=== PATIENT | female | born 1955 | race Caucasian/White ===

== ENCOUNTER 2016-10-15 04:25 | Inpatient (IN) | payer OTHER ==
[~2016-10-15] VITALS: Ht 160 cm; Wt 64.8 kg
[~2016-10-15 04:25] MED LIST: LEVO112T6; NITR100C56 PO; OMEG1CAP62; VITA113.
[2016-10-15] MEDS ORDERED: SODIUM CHLORIDE FLUSH 10ML SYR IVF ONE (05:30)
[2016-10-15 06:05] LABS: HEMOGLOBIN 14.5 g/dL (11.7-16.4)
[2016-10-15 06:14] LABS: BLOOD UREA NITROGEN 11 mg/dL (7-18)
[2016-10-15 06:18] LABS: IS PT STATUS REG ER OR PRE ER? YES
[2016-10-15] MEDS ORDERED: HEPARIN 5,000 UNITS/ML, 1ML ONE (07:58)
[2016-10-15] MEDS ORDERED: HEPARIN 25,000 UNITS/500ML PMX 500 ML ONE (07:58)
[2016-10-15] MEDS ORDERED: HEPARIN 25,000 UNITS/500ML PMX 500 ML IV PRN (08:00)
[2016-10-15] MEDS ORDERED: HEPARIN 5,000 UNITS/ML, 1ML IV ONE (08:00)
[2016-10-15] MEDS ORDERED: SODIUM CHLORIDE 0.9% 1,000 ML IV SCH (08:45)
[2016-10-15] MEDS ORDERED: OMNIPAQUE 350 MG/ML, 100ML BOTTLE ONE (08:51)
[2016-10-15] MEDS ORDERED: DOCUSATE 100 MG CAPSULE PO PRN (09:00)
[2016-10-15] MEDS ORDERED: MORPHINE SULFATE 4 MG/ML, 1ML IVPush PRN (09:00)
[2016-10-15] MEDS ORDERED: ENALAPRILAT 1.25 MG/ML, 2ML IVPush PRN ×2 (09:00→21:56)
[2016-10-15] MEDS ORDERED: ACETAMINOPHEN 325 MG TABLET PO PRN (09:00)
[2016-10-15] MEDS ORDERED: OXYcodone IR 5MG TABLET PO PRN (09:00)
[2016-10-15] MEDS ORDERED: POLYETHYLENE GLYCOL 17 GM PACKET PO PRN (09:00)
[2016-10-15] MEDS ORDERED: ONDANSETRON 2MG/ML, 2ML IVP PRN (09:00)
[2016-10-15] MEDS ORDERED: BISACODYL 10 MG SUPP PR PRN (09:00)
[2016-10-15] MEDS: LEVOTHYROXINE 112 MCG TABLET PO SCH (09:30)
[2016-10-15 10:22] VITALS: BP 150/81
[2016-10-15 15:35] VITALS: BP 148/84
[2016-10-15] MEDS: HEPARIN 5,000 UNITS/ML, 1ML IV PRN ×2 (16:28→23:56)
[2016-10-15 19:13] VITALS: BP 126/77
[2016-10-15] MEDS ORDERED: DIPHENHYDRAMINE 50 MG CAPSULE PO PRN (22:00)
[2016-10-16 00:42] VITALS: BP_SYST 140; BP_SYST 155; BP_DIAS 74
[2016-10-16] MEDS: LEVOTHYROXINE 112 MCG TABLET PO SCH (05:36)
[2016-10-16 06:14] LABS: HEMOGLOBIN 14.3 g/dL (11.7-16.4)
[2016-10-16 06:24] LABS: BLOOD UREA NITROGEN 12 mg/dL (7-18)
[2016-10-16 06:28] LABS: ASPARTATE AMINO TRANSFERASE 14 U/L (15-37)
[2016-10-16 07:04] VITALS: BP 117/76
[2016-10-16] MEDS ORDERED: APIX5TAB PO (11:20)
== END 2016-10-16 14:38 | disposition home or self-care (01) | DRG 175 ==
LOC: ED 06:41 → EDIP 07:59 → 4WST 10:02
PROVIDERS: ADMIT Internal Medicine; ATTEND Internal Medicine
DX: I26.99 Other pulmonary embolism without acute cor pulmonale (principal); N17.0 Acute kidney failure with tubular necrosis; I82.4Y1 Acute embolism and thrombosis of unspecified deep veins of right proximal lower extremity; E03.9 Hypothyroidism, unspecified; F17.210 Nicotine dependence, cigarettes, uncomplicated; I10 Essential (primary) hypertension; N90.5 Atrophy of vulva; Z87.440 Personal history of urinary (tract) infections; Z88.1 Allergy status to other antibiotic agents; Z88.0 Allergy status to penicillin; Z95.0 Presence of cardiac pacemaker
CPT/HCPCS: 36415; 71020; 71275; 80048; 80053; 80061; 82040; 82306; 82607; 83036; 83735; 83880; 84439; 84443; 84484; 85025; 85379; 85520; 85610; 85730; 93005; 93306; 96365; 96366; 96376; J1644; Q9967; J7030

== ENCOUNTER → 2018-01-15 | Outpatient (CLI) | payer OTHER ==
[~2018-01-15] MED LIST changes: +APIX5TAB PO; +OMEG-157; -OMEG1CAP62
== END ==
LOC: CFH 10:20
PROVIDERS: ATTEND Specialist
DX: Z02.9 Encounter for administrative examinations, unspecified (principal)